=== PATIENT | male | born 1945 | race Two or more races ===

== ENCOUNTER 2016-10-27 06:30 | Day surgery (SDC) | payer MEDICARE ==
[2016-10-27] MEDS ORDERED: BALANCED SALT IRRIG SOLN COMB1 500 ML, VANCOMYCIN FOR BSS PLUS 10 MG, GENTAMICIN SULFAT... IO ONE ×4 (07:00)
[2016-10-27] MEDS ORDERED: VANCOMYCIN FOR CATARACT SURGERY MC ONE ×2 (07:00)
[2016-10-27] MEDS ORDERED: FLURBIPROFEN 0.03% OPHT DROP 2.5 ML BOTTLE ONE (07:46)
[2016-10-27] MEDS ORDERED: CYCLOPENTOLATE 1% OPHT DROP 2 ML BOTTLE ONE (07:46)
[2016-10-27] MEDS ORDERED: CIPROFLOXACIN 0.3% OPHT DROP 2.5 ML BOTTLE ONE (07:46)
[2016-10-27] MEDS ORDERED: TROPICAMIDE 1% OPHT DROP 3 ML BOTTLE ONE (07:47)
[2016-10-27] MEDS ORDERED: LIDOCAINE-MPF 2% 5 ML VIAL ONE (08:08)
[2016-10-27] MEDS ORDERED: TIMOLOL MALEATE 0.5% OPHT DROP 5 ML BOTTLE ONE (08:08)
[2016-10-27] MEDS ORDERED: NEO/POLYMYX B/DEXAME OPHT OINT 3.5 GM TUBE ONE (08:08)
[2016-10-27] MEDS ORDERED: EPINEPHRINE 1 MG/1 ML AMP ONE (08:09)
[2016-10-27] MEDS ORDERED: ACETYLCHOLINE CHLORIDE 1% OPHT 1 EA KIT ONE (08:09)
[2016-10-27] MEDS ORDERED: TETRACAINE HCL 0.5% OPHT DROP 2 ML BOTTLE ONE (08:09)
[2016-10-27] MEDS ORDERED: BALANCED SALT IRRIG SOLN COMB2 15 ML IRRIG.SOLN ONE (08:09)
[2016-10-27] MEDS ORDERED: LIDOCAINE HCL-MPF 1% 5 ML VIAL ONE (08:09)
[2016-10-27] MEDS ORDERED: HYALURONATE SODIUM 12.8 MG/0.8 ML DISP.SYRIN ONE (08:10)
[2016-10-27] MEDS ORDERED: HYALURONIDASE,OVINE 200 UNITS/ML VIAL ONE (08:10)
[2016-10-27] MEDS ORDERED: HYALURONATE SODIUM 8.5 MG/0.85 ML DISP.SYRIN ONE (08:10)
[2016-10-27] MEDS ORDERED: BUPIVACAINE PF 0.5% 30 ML VIAL ONE (08:10)
[2016-10-27] MEDS ORDERED: FENTANYL CITRATE 100 MCG/2 ML AMPUL ONE (08:26)
[2016-10-27] MEDS ORDERED: BALANCED SALT IRRIG SOLN COMB1 500 ML ONE (10:08)
== END 2016-10-27 11:15 ==
LOC: DS 06:30
PROVIDERS: ATTEND Ophthalmology
DX: H26.9 Unspecified cataract (principal); I10 Essential (primary) hypertension; J69.0 Pneumonitis due to inhalation of food and vomit; R41.0 Disorientation, unspecified; E78.5 Hyperlipidemia, unspecified; M51.36 Other intervertebral disc degeneration, lumbar region; G31.84 Mild cognitive impairment of uncertain or unknown etiology; R00.1 Bradycardia, unspecified
CPT/HCPCS: 71010; A4663; J0171; J1580; J3010; J3370; J3471; J3490; J7120; J7321; V2632

== ENCOUNTER 2016-12-01 07:00 | Day surgery (SDC) | payer MEDICARE, OTHER ==
[~2016-12-01 07:00] MED LIST: BALANCED SALT IRRIG SOLN COMB1 500 ML, VANCOMYCIN FOR BSS PLUS 10 MG, GENTAMICIN SULFAT... IO ONE; VANCOMYCIN FOR CATARACT SURGERY MC ONE
[2016-12-01] MEDS ORDERED: FLURBIPROFEN 0.03% OPHT DROP 2.5 ML BOTTLE ONE (07:31)
[2016-12-01] MEDS ORDERED: TROPICAMIDE 1% OPHT DROP 3 ML BOTTLE ONE (07:32)
[2016-12-01] MEDS ORDERED: CYCLOPENTOLATE 1% OPHT DROP 2 ML BOTTLE ONE (07:32)
[2016-12-01] MEDS ORDERED: CIPROFLOXACIN 0.3% OPHT DROP 2.5 ML BOTTLE ONE (07:32)
[2016-12-01] MEDS ORDERED: PHENYLEPHRINE 2.5% OPHT DROP 2 ML BOTTLE ONE (07:33)
[2016-12-01] MEDS ORDERED: LIDOCAINE-MPF 2% 5 ML VIAL ONE (07:33)
[2016-12-01] MEDS ORDERED: TIMOLOL MALEATE 0.5% OPHT DROP 5 ML BOTTLE ONE (07:33)
[2016-12-01] MEDS ORDERED: NEO/POLYMYX B/DEXAME OPHT OINT 3.5 GM TUBE ONE (07:33)
[2016-12-01] MEDS ORDERED: EPINEPHRINE 1 MG/1 ML AMP ONE (07:34)
[2016-12-01] MEDS ORDERED: BALANCED SALT IRRIG SOLN COMB2 15 ML IRRIG.SOLN ONE (07:34)
[2016-12-01] MEDS ORDERED: ACETYLCHOLINE CHLORIDE 1% OPHT 1 EA KIT ONE (07:34)
[2016-12-01] MEDS ORDERED: LIDOCAINE HCL-MPF 1% 5 ML VIAL ONE (07:34)
[2016-12-01] MEDS ORDERED: TETRACAINE HCL 0.5% OPHT DROP 2 ML BOTTLE ONE (07:34)
[2016-12-01] MEDS ORDERED: HYALURONIDASE,OVINE 200 UNITS/ML VIAL ONE (07:35)
[2016-12-01] MEDS ORDERED: BUPIVACAINE PF 0.5% 30 ML VIAL ONE (07:35)
[2016-12-01] MEDS ORDERED: HYALURONATE SODIUM 8.5 MG/0.85 ML DISP.SYRIN ONE (07:35)
[2016-12-01] MEDS ORDERED: HYALURONATE SODIUM 12.8 MG/0.8 ML DISP.SYRIN ONE (07:53)
[2016-12-01] MEDS ORDERED: FENTANYL CITRATE 100 MCG/2 ML AMPUL ONE (08:18)
[2016-12-01] MEDS ORDERED: BALANCED SALT IRRIG SOLN COMB1 0 ML ONE (08:59)
== END 2016-12-01 10:00 ==
LOC: DS 07:00
PROVIDERS: ATTEND Ophthalmology
DX: H26.9 Unspecified cataract (principal); I25.10 Atherosclerotic heart disease of native coronary artery without angina pectoris; I10 Essential (primary) hypertension; J45.909 Unspecified asthma, uncomplicated; F19.10 Other psychoactive substance abuse, uncomplicated; E78.00 Pure hypercholesterolemia, unspecified; J18.9 Pneumonia, unspecified organism
CPT/HCPCS: 66984; A4663; J0171 ×2; J1580; J3010; J3370 ×2; J3471; J3490 ×3; J7120; J7321 ×2; V2632